=== PATIENT | male | born 1970 | race Caucasian/White ===

== ENCOUNTER 2023-03-01 13:24 | Inpatient (IN) | payer OTHER, SELFPAY ==
--- NOTE | ~2023-03-01 | XR_ITS ---
EXAMINATION: XR HAND, RIGHT CLINICAL INFORMATION: Dog bite COMPARISON: None available. TECHNIQUE: PA, lateral, and oblique views of the right hand. FINDINGS: No acute fracture or dislocation. Question evidence of old trauma to the base of the metacarpal bones or PRISON joint on the lateral view. Mild arthritis at the IP and first MCP joint of the thumb. Soft tissue swelling over the metacarpal region. No abnormal air collection or soft tissue foreign body. XR/XR hand RT min 3V IMPRESSION: No acute fracture or soft tissue foreign body. Diffuse soft tissue swelling.
--- NOTE | 2023-03-01 14:29 | ED_ITS ---
HPI - Extremity Injury (Upper) General Chief Complaint: Wound/Laceration <JUAN DAVID Leggett - Last Filed: 03/01/23 14:38> Stated Complaint: Dr called ahead for IV antibioticsw <JUAN DAVID Leggett - Last Filed: 03/01/23 14:38> Time Seen by Provider: 03/01/23 14:55 <JUAN DAVID Leggett - Last Filed: 03/01/23 14:38> Source: patient and family <Brian Hearn MD - Last Filed: 03/01/23 16:19> Mode of arrival: ambulatory <Brian Hearn MD - Last Filed: 03/01/23 16:19> Limitations: no limitations <Brian Hearn MD - Last Filed: 03/01/23 16:19> History of Present Illness HPI narrative: patient was bitten by his dog 5 days ago now with increased swelling and erythema <Brian Hearn MD - Last Filed: 03/01/23 16:19> MD complaint: injury to: right and hand <Brian Hearn MD - Last Filed: 03/01/23 16:19> Onset (ago): day(s) <Brian Hearn MD - Last Filed: 03/01/23 16:19> Severity: moderate <Brian Hearn MD - Last Filed: 03/01/23 16:19> Related Data Home Medications: Home Medications Medication Instructions Recorded Confirmed ascorbic acid (vitamin C) 500 mg 500 mg PO DAILY 03/01/23 03/01/23 tablet (Vitamin C) multivitamin 1 tab PO DAILY 03/01/23 03/01/23 <JUAN DAVID Leggett - Last Filed: 03/01/23 14:38> Allergies/Adverse Reactions: Allergies Allergy/AdvReac Type Severity Reaction Status Date / Time No Known Allergies Allergy Verified 03/01/23 14:29 <JUAN DAVID Leggett - Last Filed: 03/01/23 14:38> Review of Systems Review of Systems: Yes all other systems are reviewed and are negative < Brian Hearn MD - Last Filed: 03/01/23 16:19> Musculoskeletal: Comments: hand swelling and redness <Brina Hearn MD - Last Filed: 03/01/23 16:19> Neurologic: Denies Sensory deficit (Neuro) <Brian Hearn MD - Last Filed: 03/01/23 16:19> Physical Exam Vital Signs: Vital Signs: Last Vital Signs Temp 98.3 F 03/01/23 14:31 Pulse 85 03/01/23 14:31 Resp 16 03/01/23 14:31 BP 144/82 H 03/01/23 14:31 Pulse Ox 98 03/01/23 14:31 O2 Del Method Room Air 03/01/23 14:31 BMI result Body Mass Index 30.5 <JUAN DAVID Leggett - Last Filed: 03/01/23 14:38> Vital Signs: Last Vital Signs Temp 98.3 F 03/01/23 14:31 Pulse 85 03/01/23 14:31 Resp 16 03/01/23 14:31 BP 144/82 H 03/01/23 14:31 Pulse Ox 98 03/01/23 14:31 O2 Del Method Room Air 03/01/23 14:31 BMI result Body Mass Index 30.5 <Brian Hearn MD - Last Filed: 03/01/23 16:19> Const: General: healthy appearing <Brian Hearn MD - Last Filed: 02/18 12/13 16:19> Nutritional Appearance: average body habitus <Brian Hearn MD - Last Filed: 03/01/23 16:19> Orientation/consciousness: oriented to person and patient oriented x3 <Brian Hearn MD - Last Filed: 03/01/23 16:19> Limitations: no limitations <Brian Hearn MD - Last Filed: 03/01/23 16:19> HEENT: Head: Yes normal to inspection <Brian Hearn MD - Last Filed: 03/01/23 16:19> Ears: external ears normal <Brian Hearn MD - Last Filed: 03/01/23 16:19> General nose exam: Normal external nose present <Brian Hearn MD - Last Filed: 03/01/23 16:19> Mouth: Normal oral and palatal mucosa present and oropharynx normal <Brian Hearn MD - Last Filed: 03/01/23 16:19> Throat: Yes posterior oropharynx normal <Brian Hearn MD - Last Filed: 03/01/23 16:19> Eyes: General: appearance normal, both eyes and all related structures <Brian Hearn MD - Last Filed: 03/01/23 16:19> Neck: Other: supple <Brian Hearn MD - Last Filed: 03/01/23 16:19> Neck: Yes normal visual inspection <Brian Hearn MD - Last Filed: 03/01/23 16:19> Chest: Chest palpation & inspection: normal inspection of the chest <Brian Hearn MD - Last Filed: 03/01/23 16:19> Resp: Auscultation: clear to auscultation bilaterally <Brian Hearn MD - Last Filed: 03/01/23 16:19> Cardio: Jugular venous distension: no JVD <Brian Hearn MD - Last Filed: 03/01/23 16:19> Rate: regular rate <Brian Hearn MD - Last Filed: 03/01/23 16:19> Rhythm: regular rhythm <Brian Hearn MD - Last Filed: 03/01/23 16:19> Heart sounds: S1 normal heart sound present and S2 normal heart sound present <Brian Hearn MD - Last Filed: 03/01/23 16:19> GI: Inspection: Yes normal to inspection <Brian Hearn MD - Last Filed: 03/01/23 16:19> Palpation (GI): Soft to palpation, nontender and No hepatosplenomegaly present <Brian Hearn MD - Last Filed: 03/01/23 16:19> Auscultation: normal bowel sounds <Brian Hearn MD - Last Filed: 03/01/23 16:19> : General: Yes no CVA tenderness <Brian Hearn MD - Last Filed: 03/01/23 16:19> Back/Spine/Pelvis: Back: no CVA tenderness <Brian Hearn MD - Last Filed: 03/01/23 16:19> Skin: Other: as per hand exam <Brian Hearn MD - Last Filed: 03/01/23 16:19> Neuro: General: oriented to person and patient oriented x3 <Brian Hearn MD - Last Filed: 03/01/23 16:19> Cranial nerves: Yes CN's II-XII intact bilaterally <Brian Hearn MD - Last Filed: 03/01/23 16:19> Motor exam (neuro): 5/5 motor strength present throughout <Brian Hearn MD - Last Filed: 03/01/23 16:19> Sensory Exam: No Sensory deficit (Neuro) <Brian Hearn MD - Last Filed: 03/01/23 16:19> Extrem: Other: swollen with erythema and pus coming from dorsum of right 2nd digit <Brian Hearn MD - Last Filed: 03/01/23 16:19> Psych: Appearance: grossly normal <Brian Hearn MD - Last Filed: 03/01/23 16:19> Course Course Course Narrative: RME: 53yo M w/no sig PMHx c/o dog bite to right hand 5 days ago with worsening erythema, swelling, and pus drainage noted today. Sent in from urgent care, received Tdap [employer]. Dog UTD on vaccinations +puncture wounds to R hand worse @ 2nd digit MCP w/expressible drainage. +hand erythema/warmth. NV intact EKG, Labs, blood lactic/blood cultures, XR, IV Unasyn ordered Full HPI, ROS and PE to be performed by primary ED provider. <JUAN DAVID Leggett - Last Filed: 03/01/23 14:38> Reevaluation(s) Reevaluation #1: Patient evaluated by ortho will admit to hospitalist for IV abx <Brian Hearn MD - Last Filed: 03/01/23 16:19> Time: 16:13 <Brian Hearn MD - Last Filed: 03/01/23 16:19> Medical Decision Making Differential Diagnosis Differential Diagnoses: The differential diagnosis associated with the presentation includes (cellulitis, abscess, tenosynovitis) <Brian Hearn MD - Last Filed: 03/01/23 16:19> Admission/Observation Consideration of admission/observation: Escalation of care including admission/observation considered (upon evaluation the patient with red swollen hand needed admission) <Brian Hearn MD - Last Filed: 03/01/23 16:19> Consult Healthcare Provider Management of the patient was discussed with: Hospitalist and Global Regulatory Affairs Manager (ortho) <Brian Hearn MD - Last Filed: 03/01/23 16:19> Lab Data MDM Lab Attestation statement: I reviewed the patient's lab results. (noted WBC elevation) <Brian Hearn MD - Last Filed: 03/01/23 16:19> Result Diagrams: 03/01/23 15:04 03/01/23 15:04 <JUAN DAVID Leggett - Last Filed: 03/01/23 14:38> Labs: Lab Results 03/01/23 03/01/23 03/01/23 Range/Units 15:04 15:04 15:04 WBC 17.1 H (4.8-10.8) X10*3/uL RBC 5.25 (4.60-5.80) X10*6/uL Hgb 15.1 (14.0-18.0) g/dl Hct 45.2 (42.0-52.0) % MCV 86.1 (80.0-98.0) fL MCH 28.8 (27.0-33.0) pg MCHC 33.4 (31.0-36.0) g/dl RDW 13.3 (11.0-16.0) % Plt Count 315 (160-400) X10*3/uL MPV 9.6 (9.4-12.4) fL Immature Gran % (Auto) 0.5 H (0.0-0.4) % Neut % (Auto) 69.4 (45-73) % Lymph % (Auto) 20.3 (20-40) % Weston % (Auto) 8.3 (2-11) % Eos % (Auto) 1.3 (0-4) % Baso % (Auto) 0.2 (0-2) % Lymph # (Auto) 3.5 (1.2-4.9) X10*3/uL Weston # (Auto) 1.4 H (0.1-1.2) X10*3/uL Eos # (Auto) 0.2 (0.0-0.4) X10*3/uL Baso # (Auto) 0.0 (0.0-0.2) X10*3/uL Abs Immat Gran (auto) 0.09 H (0.00-0.03) X10*3/uL Absolute Neuts (auto) 11.9 H (2.0-8.3) x10*3/uL Absolute Nucleated RBC 0.000 (0.0-0.012) X10*3/uL Nucleated RBC % (auto) 0.0 (0.0-0.2) /100WBC PT 10.5 (10.0-13.1) SEC INR 0.9 (0.9-1.1) Sodium 138 (135-145) mmol/L Potassium 4.2 (3.3-5.1) mmol/L Chloride 106 (96-108) mmol/L Carbon Dioxide 23 (22-29) mmol/L Anion Gap 13 (12-20) BUN 9 (9-16) mg/dL Creatinine 0.74 (0.5-1.4) mg/dL Estim Creat Clear Calc 139.3 Estimated GFR > 60 Random Glucose 86 (60-115) mg/dL Lactic Acid (0.5-2.0) mmol/L Calcium 8.8 (8.4-10.2) mg/dL Total Bilirubin 0.9 (0.0-1.0) mg/dL Direct Bilirubin 0.2 (0.0-0.5) mg/dL AST 24 (5-37) U/L ALT 37 (0-40) U/L Alkaline Phosphatase 73 (39-117) U/L Total Protein 7.5 (6.5-8.0) g/dL Albumin 4.3 (3.5-5.0) g/dL 03/01/23 Range/Units 15:04 WBC (4.8-10.8) X10*3/uL RBC (4.60-5.80) X10*6/uL Hgb (14.0-18.0) g/dl Hct (42.0-52.0) % MCV (80.0-98.0) fL MCH (27.0-33.0) pg MCHC (31.0-36.0) g/dl RDW (11.0-16.0) % Plt Count (160-400) X10*3/uL MPV (9.4-12.4) fL Immature Gran % (Auto) (0.0-0.4) % Neut % (Auto) (45-73) % Lymph % (Auto) (20-40) % Weston % (Auto) (2-11) % Eos % (Auto) (0-4) % Baso % (Auto) (0-2) % Lymph # (Auto) (1.2-4.9) X10*3/uL Weston # (Auto) (0.1-1.2) X10*3/uL Eos # (Auto) (0.0-0.4) X10*3/uL Baso # (Auto) (0.0-0.2) X10*3/uL Abs Immat Gran (auto) (0.00-0.03) X10*3/uL Absolute Neuts (auto) (2.0-8.3) x10*3/uL Absolute Nucleated RBC (0.0-0.012) X10*3/uL Nucleated RBC % (auto) (0.0-0.2) /100WBC PT (10.0-13.1) SEC INR (0.9-1.1) Sodium (135-145) mmol/L Potassium (3.3-5.1) mmol/L Chloride (96-108) mmol/L Carbon Dioxide (22-29) mmol/L Anion Gap (12-20) BUN (9-16) mg/dL Creatinine (0.5-1.4) mg/dL Estim Creat Clear Calc Estimated GFR Random Glucose (60-115) mg/dL Lactic Acid 1.1 (0.5-2.0) mmol/L Calcium (8.4-10.2) mg/dL Total Bilirubin (0.0-1.0) mg/dL Direct Bilirubin (0.0-0.5) mg/dL AST (5-37) U/L ALT (0-40) U/L Alkaline Phosphatase (39-117) U/L Total Protein (6.5-8.0) g/dL Albumin (3.5-5.0) g/dL <JUAN DAVID Leggett - Last Filed: 03/01/23 14:38> Lab Results 03/01/23 03/01/23 03/01/23 Range/Units 15:04 15:04 15:04 WBC 17.1 H (4.8-10.8) X10*3/uL RBC 5.25 (4.60-5.80) X10*6/uL Hgb 15.1 (14.0-18.0) g/dl Hct 45.2 (42.0-52.0) % MCV 86.1 (80.0-98.0) fL MCH 28.8 (27.0-33.0) pg MCHC 33.4 (31.0-36.0) g/dl RDW 13.3 (11.0-16.0) % Plt Count 315 (160-400) X10*3/uL MPV 9.6 (9.4-12.4) fL Immature Gran % (Auto) 0.5 H (0.0-0.4) % Neut % (Auto) 69.4 (45-73) % Lymph % (Auto) 20.3 (20-40) % Weston % (Auto) 8.3 (2-11) % Eos % (Auto) 1.3 (0-4) % Baso % (Auto) 0.2 (0-2) % Lymph # (Auto) 3.5 (1.2-4.9) X10*3/uL Weston # (Auto) 1.4 H (0.1-1.2) X10*3/uL Eos # (Auto) 0.2 (0.0-0.4) X10*3/uL Baso # (Auto) 0.0 (0.0-0.2) X10*3/uL Abs Immat Gran (auto) 0.09 H (0.00-0.03) X10*3/uL Absolute Neuts (auto) 11.9 H (2.0-8.3) x10*3/uL Absolute Nucleated RBC 0.000 (0.0-0.012) X10*3/uL Nucleated RBC % (auto) 0.0 (0.0-0.2) /100WBC PT 10.5 (10.0-13.1) SEC INR 0.9 (0.9-1.1) Sodium 138 (135-145) mmol/L Potassium 4.2 (3.3-5.1) mmol/L Chloride 106 (96-108) mmol/L Carbon Dioxide 23 (22-29) mmol/L Anion Gap 13 (12-20) BUN 9 (9-16) mg/dL Creatinine 0.74 (0.5-1.4) mg/dL Estim Creat Clear Calc 139.3 Estimated GFR > 60 Random Glucose 86 (60-115) mg/dL Lactic Acid (0.5-2.0) mmol/L Calcium 8.8 (8.4-10.2) mg/dL Total Bilirubin 0.9 (0.0-1.0) mg/dL Direct Bilirubin 0.2 (0.0-0.5) mg/dL AST 24 (5-37) U/L ALT 37 (0-40) U/L Alkaline Phosphatase 73 (39-117) U/L Total Protein 7.5 (6.5-8.0) g/dL Albumin 4.3 (3.5-5.0) g/dL 03/01/23 Range/Units 15:04 WBC (4.8-10.8) X10*3/uL RBC (4.60-5.80) X10*6/uL Hgb (14.0-18.0) g/dl Hct (42.0-52.0) % MCV (80.0-98.0) fL MCH (27.0-33.0) pg MCHC (31.0-36.0) g/dl RDW (11.0-16.0) % Plt Count (160-400) X10*3/uL MPV (9.4-12.4) fL Immature Gran % (Auto) (0.0-0.4) % Neut % (Auto) (45-73) % Lymph % (Auto) (20-40) % Weston % (Auto) (2-11) % Eos % (Auto) (0-4) % Baso % (Auto) (0-2) % Lymph # (Auto) (1.2-4.9) X10*3/uL Weston # (Auto) (0.1-1.2) X10*3/uL Eos # (Auto) (0.0-0.4) X10*3/uL Baso # (Auto) (0.0-0.2) X10*3/uL Abs Immat Gran (auto) (0.00-0.03) X10*3/uL Absolute Neuts (auto) (2.0-8.3) x10*3/uL Absolute Nucleated RBC (0.0-0.012) X10*3/uL Nucleated RBC % (auto) (0.0-0.2) /100WBC PT (10.0-13.1) SEC INR (0.9-1.1) Sodium (135-145) mmol/L Potassium (3.3-5.1) mmol/L Chloride (96-108) mmol/L Carbon Dioxide (22-29) mmol/L Anion Gap (12-20) BUN (9-16) mg/dL Creatinine (0.5-1.4) mg/dL Estim Creat Clear Calc Estimated GFR Random Glucose (60-115) mg/dL Lactic Acid 1.1 (0.5-2.0) mmol/L Calcium (8.4-10.2) mg/dL Total Bilirubin (0.0-1.0) mg/dL Direct Bilirubin (0.0-0.5) mg/dL AST (5-37) U/L ALT (0-40) U/L Alkaline Phosphatase (39-117) U/L Total Protein (6.5-8.0) g/dL Albumin (3.5-5.0) g/dL <Brian Hearn MD - Last Filed: 03/01/23 16:19> Independent Interpretation I performed an independent interpretation of an: EKG (sinus [address] or twave changes) and Plain X-Ray (hand: no fracture or air) <Brian Hearn MD - Last Filed: 03/01/23 16:19> Independent Historian Clinical information obtained from an independent historian. History obtained from or confirmed by: Spouse <Brian Hearn MD - Last Filed: 03/01/23 16:19> Tests considered The following testing was considered but not selected: CT of hand considered <Brian Hearn MD - Last Filed: 03/01/23 16:19> Discharge Plan Discharge Clinical Impression: Cellulitis, Infected hand <JUAN DAVID Leggett - Last Filed: 03/01/23 14:38> Patient Disposition: Admitted As Inpatient <JUAN DAVID Leggett - Last Filed: 03/01/23 14:38> Prescriptions: No Action multivitamin Tablet 1 tab PO DAILY ascorbic acid (vitamin C) [Vitamin C] 500 mg Tablet 500 mg PO DAILY <JUAN DAVID Leggett - Last Filed: 03/01/23 14:38>
[2023-03-01 14:31] VITALS: BP 144/82; PULSE 85; RESP 16; TEMP 36.8; O2SAT 98; BMI 30.5
--- NOTE | 2023-03-01 14:33 | ECG_ITS ---
Test Reason : CLEARANCE Blood Pressure : / mmHG Vent. Rate : 075 BPM Atrial Rate : 075 BPM P-R Int : 138 ms QRS Dur : 092 ms QT Int : 366 ms P-R-T Axes : 038 033 030 degrees QTc Int : 408 ms Normal sinus rhythm Normal ECG No previous ECGs available Referred By: Mery Hutchins Electronically Signed By:VARGAS WOOD
--- NOTE | 2023-03-01 15:06 | ED_ITS ---
HPI - Wound/Laceration General Chief Complaint: Wound/Laceration Stated Complaint: called ahead for IV antibioticsw Time Seen by Provider: 03/01/23 14:55 Source: patient and family Mode of arrival: ambulatory Limitations: no limitations History of Present Illness HPI narrative: Patient was bitten by dog 5 days ago he is up to date with tetanous, and the dog is vaccinated. No history of MRSA or VRE, now with red hot swollen hand. Onset (ago): day(s) Location: other (left hand) Related Data Home Medications Medication Instructions Recorded Confirmed ascorbic acid (vitamin C) 500 mg 500 mg PO DAILY 03/01/23 03/09/23 tablet (Vitamin C) multivitamin 1 tab PO DAILY 03/01/23 03/09/23 Allergies Allergy/AdvReac Type Severity Reaction Status Date / Time No Known Allergies Allergy Verified 03/20/23 13:11 Review of Systems Review of Systems: Yes all other systems are reviewed and are negative Musculoskeletal: Comments: swollen red hot hand Neurologic: Denies Sensory deficit (Neuro) [facility] Past Medical History Surgical History History of splenectomy Social History Social History Household Members: Family Housing: House Do you presently have visiting nurse or other home services: No Patient Tobacco Use Status: Current everyday Tobacco user Tobacco use type: Smokeless Tobacco e-Cigarette/Vaping Use: Currently Using service: No Current occupational status: unemployed Physical Exam Vital Signs: Vital Signs: Last Vital Signs Temp 98.2 F 03/04/23 08:28 Pulse 89 03/04/23 08:28 Resp 20 03/04/23 08:28 BP 138/60 03/04/23 08:28 Pulse Ox 96 03/04/23 04:00 O2 Del Method Room Air 03/04/23 08:28 BMI result Body Mass Index 30.5 Const: General: healthy appearing Nutritional Appearance: average body habitus Orientation/consciousness: oriented to person and patient oriented x3 Limitations: no limitations HEENT: Head: Yes normal to inspection Ears: external ears normal General nose exam: Normal external nose present Mouth: Normal oral and palatal mucosa present and oropharynx normal Throat: Yes posterior oropharynx normal Eyes: General: appearance normal, both eyes and all related structures Neck: Other: supple Neck: Yes normal visual inspection Chest: Chest palpation & inspection: normal inspection of the chest Resp: Auscultation: clear to auscultation bilaterally Cardio: Jugular venous distension: no JVD Rate: regular rate Rhythm: regular rhythm Heart sounds: S1 normal heart sound present and S2 normal heart sound present GI: Inspection: Yes normal to inspection Palpation (GI): Soft to palpation, nontender and No hepatosplenomegaly present Auscultation: normal bowel sounds : General: Yes no CVA tenderness Back/Spine/Pelvis: Back: no CVA tenderness Skin: Other: red swollen hand with pus coming from dorsum of finger Neuro: General: oriented to person and patient oriented x3 Cranial nerves: Yes CN's II-XII intact bilaterally Motor exam (neuro): 5/5 motor strength present throughout Sensory Exam: No Sensory deficit (Neuro) Extrem: Other: as above Psych: Appearance: grossly normal Medications Administered Discontinued Medications Generic Name Dose Route Start Last Admin Trade Name Freq PRN Reason Stop Dose Admin Acetaminophen 650 mg 03/01/23 16:08 03/03/23 11:27 Acetaminophen 325 Mg Tablet PO 650 mg Q6H PRN Administration Pain, Mild (Pain Scale 1-3) Amoxicillin/Clavulanate Potassium 875 mg 03/04/23 10:00 03/04/23 10:15 Amoxicillin/Potassium Clav 875 Mg Tablet PO 875 mg Q12H YVES Administration Ascorbic Acid 500 mg 03/02/23 09:00 03/04/23 07:25 Ascorbic Acid 500 Mg Tablet PO 500 mg DAILY YVES Administration Enoxaparin Sodium 40 mg 03/01/23 16:15 03/03/23 15:21 Enoxaparin Sodium 40 Mg/0.4 Ml Syringe SUBCUT 40 mg Q24H YVES Administration Ampicillin Sodium/Sulbactam 100 mls @ 200 mls/hr 03/01/23 14:34 03/01/23 17:45 Sodium 3 gm/ Sodium Chloride IV 03/01/23 15:03 Infused ONCE ONE Infusion Ampicillin Sodium/Sulbactam 100 mls @ 200 mls/hr 03/01/23 20:30 03/04/23 08:08 Sodium 3 gm/ Sodium Chloride IV Infused Q6H YVES Infusion Cefazolin Sodium/Dextrose 2 gm in 50 mls @ 100 mls/hr 03/02/23 10:58 03/02/23 10:15 Ancef IV 03/02/23 11:27 Not Given PREOP ONE Lactated Ringer's 1,000 mls @ 50 mls/hr 03/02/23 09:15 03/02/23 10:16 Lr IVCONT Not Given .Q20H [facility] Cefazolin Sodium/Dextrose 2 gm in 50 mls @ 100 mls/hr 03/02/23 15:00 03/02/23 15:54 Ancef IV Infused POSTOP [facility] Infusion Lidocaine HCl 10 ml 03/01/23 16:17 03/01/23 17:42 Lidocaine Hcl 1 % 20 Ml Vial SUBCUT 03/01/23 16:18 Not Given ONCE ONE Morphine Sulfate 4 mg 03/02/23 12:50 03/03/23 21:00 Morphine Sulfate 4 Mg/Ml Cartridge IVPUSH 4 mg Q4H PRN Administration severe pain Protocol Multivitamins/Vitamin C 1 tab 03/02/23 09:00 03/04/23 07:25 Multivitamin Tablet PO 1 tab DAILY [facility] Administration Nicotine 21 mg 03/01/23 16:55 03/01/23 17:46 Nicotine 21 Mg Patch.[id number] TRANSDERMA 03/01/23 16:56 21 mg ONCE ONE Administration Oxycodone HCl 5 mg 03/01/23 16:09 03/03/23 11:27 Oxycodone Hcl Immed Release 5 Mg Tablet PO 5 mg Q4H PRN Administration Pain, Severe (Pain Scale 7-10) Sodium Chloride 3 ml 03/02/23 00:00 03/04/23 07:26 0.9 % Sodium Chloride Flush 3 Ml Syringe IVFLUSH 3 ml QSHIFT [facility] Administration Medical Decision Making Lab Data 03/02/23 05:59 03/01/23 15:04 Labs: Lab Results 03/01/23 03/01/23 03/01/23 Range/Units 15:04 15:04 15:04 WBC 17.1 H (4.8-10.8) X10*3/uL RBC 5.25 (4.60-5.80) X10*6/uL Hgb 15.1 (14.0-18.0) g/dl Hct 45.2 (42.0-52.0) % MCV 86.1 (80.0-98.0) fL MCH 28.8 (27.0-33.0) pg MCHC 33.4 (31.0-36.0) g/dl RDW 13.3 (11.0-16.0) % Plt Count 315 (160-400) X10*3/uL MPV 9.6 (9.4-12.4) fL Immature Gran % (Auto) 0.5 H (0.0-0.4) % Neut % (Auto) 69.4 (45-73) % Lymph % (Auto) 20.3 (20-40) % Quay % (Auto) 8.3 (2-11) % Eos % (Auto) 1.3 (0-4) % Baso % (Auto) 0.2 (0-2) % Lymph # (Auto) 3.5 (1.2-4.9) X10*3/uL Quay # (Auto) 1.4 H (0.1-1.2) X10*3/uL Eos # (Auto) 0.2 (0.0-0.4) X10*3/uL Baso # (Auto) 0.0 (0.0-0.2) X10*3/uL Abs Immat Gran (auto) 0.09 H (0.00-0.03) X10*3/uL Absolute Neuts (auto) 11.9 H (2.0-8.3) x10*3/uL Absolute Nucleated RBC 0.000 (0.0-0.012) X10*3/uL Nucleated RBC % (auto) 0.0 (0.0-0.2) /100WBC PT 10.5 (10.0-13.1) SEC INR 0.9 (0.9-1.1) Sodium 138 (135-145) mmol/L Potassium 4.2 (3.3-5.1) mmol/L Chloride 106 (96-108) mmol/L Carbon Dioxide 23 (22-29) mmol/L Anion Gap 13 (12-20) BUN 9 (9-16) mg/dL Creatinine 0.74 (0.5-1.4) mg/dL Estim Creat Clear Calc 139.3 Estimated GFR > 60 Random Glucose 86 (60-115) mg/dL Lactic Acid (0.5-2.0) mmol/L Calcium 8.8 (8.4-10.2) mg/dL Total Bilirubin 0.9 (0.0-1.0) mg/dL Direct Bilirubin 0.2 (0.0-0.5) mg/dL AST 24 (5-37) U/L ALT 37 (0-40) U/L Alkaline Phosphatase 73 (39-117) U/L Total Protein 7.5 (6.5-8.0) g/dL Albumin 4.3 (3.5-5.0) g/dL 03/01/23 Range/Units 15:04 WBC (4.8-10.8) X10*3/uL RBC (4.60-5.80) X10*6/uL Hgb (14.0-18.0) g/dl Hct (42.0-52.0) % MCV (80.0-98.0) fL MCH (27.0-33.0) pg MCHC (31.0-36.0) g/dl RDW (11.0-16.0) % Plt Count (160-400) X10*3/uL MPV (9.4-12.4) fL Immature Gran % (Auto) (0.0-0.4) % Neut % (Auto) (45-73) % Lymph % (Auto) (20-40) % Quay % (Auto) (2-11) % Eos % (Auto) (0-4) % Baso % (Auto) (0-2) % Lymph # (Auto) (1.2-4.9) X10*3/uL Quay # (Auto) (0.1-1.2) X10*3/uL Eos # (Auto) (0.0-0.4) X10*3/uL Baso # (Auto) (0.0-0.2) X10*3/uL Abs Immat Gran (auto) (0.00-0.03) X10*3/uL Absolute Neuts (auto) (2.0-8.3) x10*3/uL Absolute Nucleated RBC (0.0-0.012) X10*3/uL Nucleated RBC % (auto) (0.0-0.2) /100WBC PT (10.0-13.1) SEC INR (0.9-1.1) Sodium (135-145) mmol/L Potassium (3.3-5.1) mmol/L Chloride (96-108) mmol/L Carbon Dioxide (22-29) mmol/L Anion Gap (12-20) BUN (9-16) mg/dL Creatinine (0.5-1.4) mg/dL Estim Creat Clear Calc Estimated GFR Random Glucose (60-115) mg/dL Lactic Acid 1.1 (0.5-2.0) mmol/L Calcium (8.4-10.2) mg/dL Total Bilirubin (0.0-1.0) mg/dL Direct Bilirubin (0.0-0.5) mg/dL AST (5-37) U/L ALT (0-40) U/L Alkaline Phosphatase (39-117) U/L Total Protein (6.5-8.0) g/dL Albumin (3.5-5.0) g/dL Discharge Plan Discharge Clinical Impression: Cellulitis, Infected hand Patient Disposition: Admitted As Inpatient Discharge Date/Time: 03/01/23 17:40
[2023-03-01 15:12] LABS: MANUAL DIFF FLAG NO
[2023-03-01 15:19] LABS: Basophils Percent Auto 0.2 % (0-2); Eosinophils Absolute Auto 0.2 X10*3/uL (0.0-0.4); Eosinophils Percent Auto 1.3 % (0-4); Hematocrit 45.2 % (42.0-52.0); Hemoglobin 15.1 g/dl (14.0-18.0); Imm Gran Abs Auto 0.09 X10*3/uL (0.00-0.03); Imm Gran Pct Auto 0.5 % (0.0-0.4); Lymphocytes Absolute Auto 3.5 X10*3/uL (1.2-4.9); Lymphocytes Percent Auto 20.3 % (20-40); Mean Corpuscular HGB Conc 33.4 g/dl (31.0-36.0); Mean Corpuscular Hemoglobin 28.8 pg (27.0-33.0); Mean Corpuscular Volume 86.1 fL (80.0-98.0); Mean Platelet Volume 9.6 fL (9.4-12.4); Monocytes Absolute Auto 1.4 X10*3/uL (0.1-1.2); Monocytes Percent Auto 8.3 % (2-11); Neutrophils Absolute Auto 11.9 x10*3/uL (2.0-8.3); Neutrophils Percent Auto 69.4 % (45-73); Platelet Count 315 X10*3/uL (160-400); Red Blood Count 5.25 X10*6/uL (4.60-5.80); Red Cell Distribution Width 13.3 % (11.0-16.0); White Blood Count 17.1 X10*3/uL (4.8-10.8)
--- NOTE | 2023-03-01 15:24 | PM.IMHP ---
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 Patient states he was home petting his other dog when the little one, a service dog for 11 years, became jealous and bit the pt's right hand multiple times, breaking the skin. Dog is up to date with rabies vaccine. Pt washed the hand but did not bandage it. 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 Last night hand started to turn red and become swollen and painful. This morning pain, swelling, redness increased and hand began draining fluid. Patient's then convinced him to visit in Urgent Care who then referred him to the ED for treatment with IV antibiotics. Patient denies fever, chills, nausea, vomiting, abdominal pain. No chest pain/pressure, palpitations. Denies shortness of breath. Of note, pt denies any medical diagnoses, but admits he has not seen a PCP in over 20 years. In the ED was afebrile but slightly hypertensive 144/82. Labs were significant for leukocytosis of 17.1, otherwise unremarkable. Electrolytes normal. Renal function WNL. Hepatic function WNL. X-ray of right and showed diffuse soft tissue swelling but no acute fracture or soft tissue foreign body. EKG demonstrated normal sinus rhythm evidence ST elevations or depressions. Pt was treated with Tdap and Unasyn. Pt will be admitted to the hospital for treatment of right hand cellulitis secondary to dog bite with IV antibiotics and specialist consult. Review of Systems Review of Systems: Right hand pain, swelling, erythema, clear drainage Denies fever, chills, nausea, vomiting, abdominal pain No shortness of breath Denies chest pain/pressure, palpitations Yes all other systems are reviewed and are negative [facility] Surgical History (Updated 03/01/23 @ 19:36 by Mery Lewis RN) History of splenectomy Social History Household Members: Family Housing: House Do you presently have visiting nurse or other home services: No Patient Tobacco Use Status: Current everyday Tobacco user Tobacco use type: Smokeless Tobacco e-Cigarette/Vaping Use: Currently Using Meds Allergies Allergy/AdvReac Type Severity Reaction Status Date / Time No Known Allergies Allergy Verified 03/01/23 14:29 Active Medications: Current Medications Pharmacy Consult (Consult Rx Perform Med Rec) 1 each MISCELLANE ONCE STA Stop: 03/01/23 14:34 Home Medications Medication Instructions Recorded Confirmed Last Taken Type ascorbic acid (vitamin C) 500 mg 500 mg PO DAILY 03/01/23 03/01/23 Unknown History tablet (Vitamin C) multivitamin 1 tab PO DAILY 03/01/23 03/01/23 Unknown History Physical Exam Vital Signs and Narrative: Vital Signs: Last Vital Signs Temp 98.3 F 03/01/23 14:31 Pulse 85 03/01/23 14:31 Resp 16 03/01/23 14:31 BP 144/82 H 03/01/23 14:31 Pulse Ox 98 03/01/23 14:31 O2 Del Method Room Air 03/01/23 14:31 BMI result Body Mass Index 30.5 Constitutional: Alert, in no acute distress. Mental Status: Oriented to person, place and time. Eyes: Pupils are equal, round, and reactive to light. Ear, Nose, and Throat: Oropharynx clear, mucous membranes moist. Ears and nose without deformities. Trachea midline. Respiratory: Clear to auscultation bilaterally. No wheezing, rales, or rhonchi. Cardiovascular: S1, S2 regular. No murmurs, rubs, or gallops. Gastrointestinal: Abdomen soft, non-tender, non-distended. Normal bowel sounds. Neurologic: Cranial nerves II-XII are grossly intact bilaterally. No focal neurological deficits. Moves all extremities spontaneously. Extremities: Area of swelling and erythema covering the dorsal aspect of the right hand, extending up the first digit. Multiple closed wounds on dorsal aspect of hand and first digit. Open laceration on MCP joint draining a small amount of serous sanguinous fluid. See pictures below. Psychiatric: Normal mood and affect. Results Labs 03/01/23 15:04 03/01/23 15:04 Labs: Laboratory Results - last 24 hr 03/01/23 15:04 MCV 86.1 MCH 28.8 MCHC 33.4 RDW 13.3 Plt Count 315 MPV 9.6 Immature Gran % (Auto) 0.5 H Neut % (Auto) 69.4 Lymph % (Auto) 20.3 [place] % (Auto) 8.3 Eos % (Auto) 1.3 Baso % (Auto) 0.2 Lymph # (Auto) 3.5 [place] # (Auto) 1.4 H Eos # (Auto) 0.2 Baso # (Auto) 0.0 Abs Immat Gran (auto) 0.09 H Absolute Neuts (auto) 11.9 H Absolute Nucleated RBC 0.000 Nucleated RBC % (auto) 0.0 Assessment and Plan (1) Cellulitis: Status: Acute (2) Dog bite of dorsum of hand: Status: Acute Plan Pt is a 53-year-old male with a 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 Pt will be admitted to the hospital for treatment of right hand cellulitis secondary to dog bite with IV antibiotics and specialist consult. Right hand cellulitis secondary to dog bite Patient with dog bite 5 days ago, rabies vaccinations up-to-date Erythema and painful swelling x2 days, serous-sanguinous drainage x1 day Unasyn 3g q6, started 03/01/2023 Analgesics for pain management Orthopedics consult Follow cultures Routine health maintenance Pt has not seen a PCP in 20+ years Pt has been encouraged to have yearly physicals Full Code Attending:?Dr. Tam DVT Prophylaxis: Lovenox Pt will require a hospitalization of at least two nights for treatment of?right hand cellulitis secondary to dog by with IV antibiotics and specialist consult. Time Spent With Patient Time: Total time managing care of this patient today ____ minutes. Quality Stroke Does the patient have a stroke diagnosis?: No VTE Prior VTE?: No VTE Risk Level:: Medical - moderate - high VTE Device Contraindication: Treatment Not Indicated VTE Drug Contraindication: N/A - Med Ordered
[2023-03-01 15:26] LABS: INTERNATIONAL NORM RATIO 0.9 (0.9-1.1); Prothrombin Time 10.5 SEC (10.0-13.1)
[2023-03-01 15:33] LABS: Lactic Acid 1.1 mmol/L (0.5-2.0)
[2023-03-01 15:37] LABS: Alanine Aminotransferase 37 U/L (0-40); Albumin Level 4.3 g/dL (3.5-5.0); Alkaline Phosphatase 73 U/L (39-117); Anion Gap 13 (12-20); Aspartate Amino Transferase 24 U/L (5-37); Bilirubin Direct 0.2 mg/dL (0.0-0.5); Bilirubin Total 0.9 mg/dL (0.0-1.0); Blood Urea Nitrogen 9 mg/dL (9-16); Calcium 8.8 mg/dL (8.4-10.2); Carbon Dioxide 23 mmol/L (22-29); Chloride 106 mmol/L (96-108); Creatinine Clr Calc Pharmacy 139.3; Estimated Glomerular Filt Rate > 60; Glucose Random 86 mg/dL (60-115); Potassium 4.2 mmol/L (3.3-5.1); Sodium 138 mmol/L (135-145); Total Protein 7.5 g/dL (6.5-8.0)
[2023-03-01] MEDS: Ampicillin Sodium/Sulbactam Na 3 GM in 0.9 % Sodium Chloride 100 ML IV ×2 (16:18→21:12)
--- NOTE | 2023-03-01 16:24 | PM.EVENT ---
Event Note Date of Service: 03/01/23 Event Note: Addendum to history and physical by the advanced practice provider, JUAN DAVID Valentine I interviewed and examined the patient. I discussed their presentation and management with the MAINOR. I reviewed the history and physical and agree with the documentation, with the following additions and corrections: 53yo non diabetic M, hx splenectomy, bit by his service dog 5d prior to presentation. Presenting with 1d of redness/swelling/pain, now draining fluid Dorsum of R hand erythematous + swollen, distally neurovascular intact admit to M/S, consult Ortho, give amp-sulbactam Time Spent With Patient Time: Total time managing care of this patient today ____ minutes.
[2023-03-01] MEDS: oxyCODONE HCl Immed Release 5 MG TABLET PO ×2 (16:28→21:11)
[2023-03-01] MEDS: Enoxaparin Sodium 40 MG/0.4 ML SYRINGE SUBCUT (16:28)
--- NOTE | 2023-03-01 16:50 | P.HPOP_ITS ---
History of Present Illness History of Present Illness Date of Service: 03/01/23 Chief complaint: Dog bite to right hand Narrative: Willem Moore is a 53 year old male who presented to the ED for right hand dog bite that he sustained 5 days ago. He was seen at an urgent care who directed h im to the ED for further evaluation. The dog is owned by the patient. He reports that it is a service dog and up to date on all vaccinations. He reports that this morning in the shower the punture wound over the index finger opened and began draining puss. He was seen in the ED and admitted to the medicine service for IV abx and orthopedics was consulted for further evaluation and treatment. Review of Systems Review of Systems: Yes all other systems are reviewed and are negative PMFSH Social History Social History Advance Directives: No Advance Directives Information Provided: Yes Meds Allergies Allergy/AdvReac Type Severity Reaction Status Date / Time No Known Allergies Allergy Verified 03/01/23 14:29 Active Medications: Current Medications Acetaminophen (Acetaminophen 325 Mg Tablet) 650 mg PO Q6H PRN PRN Reason: Pain, Mild (Pain Scale 1-3) Ascorbic Acid (Ascorbic Acid 500 Mg Tablet) 500 mg PO DAILY [facility] Docusate Sodium (Docusate Sodium 100 Mg Capsule) 100 mg PO DAILY PRN PRN Reason: Constipation Enoxaparin Sodium (Enoxaparin Sodium 40 Mg/0.4 Ml Syringe) 40 mg SUBCUT Q24H [facility] Last Admin: 03/01/23 16:28 Dose: 40 mg Ampicillin Sodium/Sulbactam (Sodium 3 gm/ Sodium Chloride) 100 mls @ 200 mls/hr IV Q6H [facility] Multivitamins/Vitamin C (Multivitamin Tablet) 1 tab PO DAILY [facility] Ondansetron HCl (Ondansetron Hcl 4 Mg/2 Ml Vial) 4 mg IVPUSH Q8H PRN PRN Reason: Nausea and Vomiting Oxycodone HCl (Oxycodone Hcl Immed Release 5 Mg Tablet) 5 mg PO Q4H PRN PRN Reason: Pain, Severe (Pain Scale 7-10) Last Admin: 03/01/23 16:28 Dose: 5 mg Sodium Chloride (0.9 % Sodium Chloride Flush 3 Ml Syringe) 3 ml IVFLUSH QSHIFT [facility] Home Medications Medication Instructions Recorded Confirmed Last Taken Type ascorbic acid (vitamin C) 500 mg 500 mg PO DAILY 03/01/23 03/01/23 Unknown History tablet (Vitamin C) multivitamin 1 tab PO DAILY 03/01/23 03/01/23 Unknown History Physical Exam Vital Signs: Vital Signs: Last Vital Signs Temp 98.3 F 03/01/23 14:31 Pulse 85 03/01/23 14:31 Resp 16 03/01/23 14:31 BP 144/82 H 03/01/23 14:31 Pulse Ox 98 03/01/23 14:31 O2 Del Method Room Air 03/01/23 14:31 BMI result Body Mass Index 30.5 Const: General: cooperative, healthy appearing and no acute distress Resp: Effort & Inspection: normal respiratory effort and able to speak in complete sentences Cardio: Rate: regular rate Peripheral pulses: Peripheral pulses 2+ throughout GI: Palpation (GI): Soft to palpation Skin: Lesions: no lesions Rashes: no rashes Extrem: Other: Right hand dorsal aspect is erythematous and edematous. Able to slightly flex fingers lacking about 4 cm from making a closed fist. Able to fully extend. No tenderness to palpation along the flexor tendons. Tenderness to dorsal aspect of the hand. Sensation intact. Capillary refill is brisk. Three puncture wounds are noted. See picture: Results Labs 03/01/23 15:04 03/01/23 15:04 Labs: Abnormal lab results 03/01/23 Range/Units 15:04 WBC 17.1 H (4.8-10.8) X10*3/uL Immature Gran % (Auto) 0.5 H (0.0-0.4) % [place] # (Auto) 1.4 H (0.1-1.2) X10*3/uL Abs Immat Gran (auto) 0.09 H (0.00-0.03) X10*3/uL Absolute Neuts (auto) 11.9 H (2.0-8.3) x10*3/uL H & H 03/01/23 Range/Units 15:04 Hgb 15.1 (14.0-18.0) g/dl Hct 45.2 (42.0-52.0) % Coagulation 03/01/23 Range/Units 15:04 INR 0.9 (0.9-1.1) All other labs normal. Assessment and Plan (1) Dog bite of dorsum of hand: Status: Acute (2) Cellulitis: Status: Acute (3) Infected hand: Status: Acute Plan I discussed the case with Dr. Andrade and explained the extent of the injury to the patient and options available which include surgical intervention. I explained the procedure in detail along with the length of recovery and rehab course. I explained the risk, benefits and alternatives. Risk including, but not limited to infection, blood clots, bleeding, and nerve/tissue damage to surrounding areas. I answered all their questions and with their understanding they have consented to move forward with irrigation and debridement of the right hand. The patient will be NPO after midnight with re-evaluation in the morning to determine if OR irrigation and debridement is still necessary. Continue IV abx Dressing changes as appropriate Pain management as appropriate NPO after midnight Time Spent With Patient Time: Total time managing care of this patient today ____ minutes. Quality Stroke Does the patient have a stroke diagnosis?: No VTE Prior VTE?: No VTE Risk Level:: Medical - moderate - high VTE Device Contraindication: Treatment Not Indicated VTE Drug Contraindication: N/A - Med Ordered Procedures Date of Service Date of Service: 03/01/23
[2023-03-01 17:24] VITALS: BP 170/90; PULSE 88; RESP 18; TEMP 36.9; O2SAT 97
[2023-03-01] MEDS: Nicotine 21 MG PATCH.TD24 TRANSDERMA (17:46)
--- NOTE | 2023-03-01 18:43 | PHA.MEDREC ---
Pharmacy Consult ? Medication Reconciliation Patient stated no meds only MVI and Vitamin C Pharmacy has completed the medication reconciliation.
[2023-03-01 19:31] VITALS: BP 195/91; PULSE 86; RESP 20; TEMP 37.3; O2SAT 98
[2023-03-01] MEDS: 0.9 % Sodium Chloride Flush 3 ML SYRINGE IVFLUSH (21:19)
[2023-03-02] VITALS (10 sets, daily range): BP systolic 123–176; BP diastolic 59–94; PULSE 66–81; RESP 15–20; TEMP 36.1–37.2; O2SAT 95–99; BMI 30.5
[2023-03-02] MEDS: Ampicillin Sodium/Sulbactam Na 3 GM in 0.9 % Sodium Chloride 100 ML IV ×3 (02:42→20:30)
[2023-03-02 06:26] LABS: Hematocrit 44.8 % (42.0-52.0); Hemoglobin 15.2 g/dl (14.0-18.0); Mean Corpuscular HGB Conc 33.9 g/dl (31.0-36.0); Mean Corpuscular Hemoglobin 29.1 pg (27.0-33.0); Mean Corpuscular Volume 85.8 fL (80.0-98.0); Mean Platelet Volume 9.7 fL (9.4-12.4); Platelet Count 312 X10*3/uL (160-400); Red Blood Count 5.22 X10*6/uL (4.60-5.80); Red Cell Distribution Width 13.3 % (11.0-16.0); White Blood Count 11.6 X10*3/uL (4.8-10.8)
[2023-03-02] MEDS: 0.9 % Sodium Chloride Flush 3 ML SYRINGE IVFLUSH ×3 (08:05→19:56)
--- NOTE | 2023-03-02 08:29 | P.CONAN_ITS ---
HPI - Anesthesia Eval Consult details Narrative: right hand celulitis PMFSH Active Problems Active Problems: All Active Problems (Updated 03/01/23 @ 16:32 by JUAN DAVID Alvarado) Cellulitis (Acute) Infected hand (Acute) Dog bite of dorsum of hand (Acute) Family History Family history of problems with anesthesia: No Surgical History Surgical History (Updated 03/01/23 @ 19:36 by Mery Lewis RN) History of splenectomy History of Problems with Anesthesia: No Social History Social History Household Members: Family Housing: House Do you presently have visiting nurse or other home services: No Patient Tobacco Use Status: Current everyday Tobacco user Tobacco use type: Smokeless Tobacco e-Cigarette/Vaping Use: Currently Using Meds Allergies Allergy/AdvReac Type Severity Reaction Status Date / Time No Known Allergies Allergy Verified 03/01/23 14:29 Active Medications: Current Medications Acetaminophen (Acetaminophen 325 Mg Tablet) 650 mg PO Q6H PRN PRN Reason: Pain, Mild (Pain Scale 1-3) Ascorbic Acid (Ascorbic Acid 500 Mg Tablet) 500 mg PO DAILY [facility] Docusate Sodium (Docusate Sodium 100 Mg Capsule) 100 mg PO DAILY PRN PRN Reason: Constipation Enoxaparin Sodium (Enoxaparin Sodium 40 Mg/0.4 Ml Syringe) 40 mg SUBCUT Q24H [facility] Last Admin: 03/01/23 16:28 Dose: 40 mg Ampicillin Sodium/Sulbactam (Sodium 3 gm/ Sodium Chloride) 100 mls @ 200 mls/hr IV Q6H [facility] Last Infusion: 03/02/23 03:19 Dose: Infused Cefazolin Sodium/Dextrose (Ancef) 2 gm in 50 mls @ 100 mls/hr IV PREOP ONE Stop: 03/02/23 11:27 Multivitamins/Vitamin C (Multivitamin Tablet) 1 tab PO DAILY [facility] Ondansetron HCl (Ondansetron Hcl 4 Mg/2 Ml Vial) 4 mg IVPUSH Q8H PRN PRN Reason: Nausea and Vomiting Oxycodone HCl (Oxycodone Hcl Immed Release 5 Mg Tablet) 5 mg PO Q4H PRN PRN Reason: Pain, Severe (Pain Scale 7-10) Last Admin: 03/01/23 21:11 Dose: 5 mg Sodium Chloride (0.9 % Sodium Chloride Flush 3 Ml Syringe) 3 ml IVFLUSH QSHIFT [facility] Last Admin: 03/02/23 08:05 Dose: 3 ml Home Medications Medication Instructions Recorded Confirmed Last Taken Type ascorbic acid (vitamin C) 500 mg 500 mg PO DAILY 03/01/23 03/01/23 Unknown History tablet (Vitamin C) multivitamin 1 tab PO DAILY 03/01/23 03/01/23 Unknown History Exam Exam Date and Time: March 02, 2023 0829 Height,Weight and Vital Signs: Height 6 ft Weight 102.058 kg Last Vital Signs Temp 97.0 F 03/02/23 08:18 Pulse 68 03/02/23 08:18 Resp 18 03/02/23 08:18 BP 176/91 H 03/02/23 08:18 Pulse Ox 97 03/02/23 08:18 O2 Del Method Room Air 03/02/23 08:18 Pertinent Lab Results Pertinent Lab Results: Laboratory Tests 03/01/23 03/01/23 03/01/23 15:04 15:04 15:04 WBC 17.1 H RBC 5.25 Hgb 15.1 Hct 45.2 MCV 86.1 MCH 28.8 MCHC 33.4 RDW 13.3 Plt Count 315 MPV 9.6 Immature Gran % (Auto) 0.5 H Neut % (Auto) 69.4 Lymph % (Auto) 20.3 [place] % (Auto) 8.3 Eos % (Auto) 1.3 Baso % (Auto) 0.2 Lymph # (Auto) 3.5 [place] # (Auto) 1.4 H Eos # (Auto) 0.2 Baso # (Auto) 0.0 Abs Immat Gran (auto) 0.09 H Absolute Neuts (auto) 11.9 H Absolute Nucleated RBC 0.000 Nucleated RBC % (auto) 0.0 PT 10.5 INR 0.9 Sodium 138 Potassium 4.2 Chloride 106 Carbon Dioxide 23 Anion Gap 13 BUN 9 Creatinine 0.74 Estim Creat Clear Calc 139.3 Estimated GFR > 60 Random Glucose 86 Lactic Acid Calcium 8.8 Total Bilirubin 0.9 Direct Bilirubin 0.2 AST 24 ALT 37 Alkaline Phosphatase 73 Total Protein 7.5 Albumin 4.3 03/01/23 03/02/23 15:04 05:59 WBC 11.6 H RBC 5.22 Hgb 15.2 Hct 44.8 MCV 85.8 MCH 29.1 MCHC 33.9 RDW 13.3 Plt Count 312 MPV 9.7 Immature Gran % (Auto) Neut % (Auto) Lymph % (Auto) [place] % (Auto) Eos % (Auto) Baso % (Auto) Lymph # (Auto) [place] # (Auto) Eos # (Auto) Baso # (Auto) Abs Immat Gran (auto) Absolute Neuts (auto) Absolute Nucleated RBC 0.000 Nucleated RBC % (auto) 0.0 PT INR Sodium Potassium Chloride Carbon Dioxide Anion Gap BUN Creatinine Estim Creat Clear Calc Estimated GFR Random Glucose Lactic Acid 1.1 Calcium Total Bilirubin Direct Bilirubin AST ALT Alkaline Phosphatase Total Protein Albumin Airway Mallampati Class: II TM Dist: >3cm Loose/Missing/Broken Teeth: Yes (loose lower incisers) Heart: RRR Lungs: CTA Assessment and Plan Assessment Anesthesia Assessment: Anesthesia Plan Discussed Final Anesthetic Review Family History of Problems with Anesthesia: No History of Problems with Anesthesia: No NPO: Yes ASA Class: I Final Preanesthetic Review: No Changes in Pt Med Stat, Meds/Allgs Chart Reviewed, Consent Obtained/Reviewed and Anes Risks/Benef Reviewed Patient Risk: Low Procedure Risk: Low Anesthetic Plan Anesthetic Plan: GA Disposition: Standard PACU
[2023-03-02] MEDS: oxyCODONE HCl Immed Release 5 MG TABLET PO ×2 (09:52→18:21)
[2023-03-02] MEDS: Acetaminophen 325 MG TABLET 650 MG PO ×2 (09:52→18:21)
--- NOTE | 2023-03-02 10:02 | PM.OP ---
Brief Operative Note Date of Service: 03/02/23 Pre-op diagnosis: Right hand infection Post-op diagnosis: same Procedure: 1) Irrigation and debridement right dorsal hand wound 2) Irrigation and debridement right 2nd web space Surgeon: Serjio Andrade MD Anesthesia: GLMA and local Was an Industrial Economics Professor used for this Procedure?: No Estimated blood loss (mL): 50 IV fluids (mL): 500 Pathology: other Condition: stable Disposition: PACU
--- NOTE | 2023-03-02 11:20 | P.PNIM_ITS ---
Subjective Subjective Date of Service: 03/02/23 Interval History: s/p I+D today pain controlled no fever/chills Review of Systems Review of Systems: Yes all other systems are reviewed and are negative Physical Exam Vital Signs: Vital Signs: Last Vital Signs Temp 97.8 F 03/02/23 11:12 Pulse 67 03/02/23 11:12 Resp 18 03/02/23 11:12 BP 158/94 H 03/02/23 11:12 Pulse Ox 98 03/02/23 11:12 O2 Del Method Room Air 03/02/23 11:12 BMI result Body Mass Index 30.5 Gen: in no acute distress HEENT: sclera anicteric, moist mucus membranes Neck: supple Lungs: clear to auscultation bilaterally Heart: regular rate and rhythm, no murmurs Abd: soft, non-tender, non-distended Ext: no edema, RUE in splint in anatomic position Skin: warm/well-perfused Neuro: alert and oriented x3, no focal findings Psych: appropriate affect Objective Data Active Medications Acetaminophen (Acetaminophen 325 Mg Tablet) 650 mg PO Q6H PRN PRN Reason: Pain, Mild (Pain Scale 1-3) Last Admin: 03/02/23 09:52 Dose: 650 mg Documented By: JOHNNY Ascorbic Acid (Ascorbic Acid 500 Mg Tablet) 500 mg PO DAILY [facility] Last Admin: 03/02/23 09:05 Dose: Not Given Documented By: ELLEN Non-Admin Reason: Off Unit: Surgery Docusate Sodium (Docusate Sodium 100 Mg Capsule) 100 mg PO DAILY PRN PRN Reason: Constipation Enoxaparin Sodium (Enoxaparin Sodium 40 Mg/0.4 Ml Syringe) 40 mg SUBCUT Q24H [facility] Last Admin: 03/01/23 16:28 Dose: 40 mg Documented By: MARIANA Ampicillin Sodium/Sulbactam (Sodium 3 gm/ Sodium Chloride) 100 mls @ 200 mls/hr IV Q6H [facility] Last Admin: 03/02/23 09:05 Dose: Not Given Documented By: ELLEN Non-Admin Reason: Off Unit: Surgery Cefazolin Sodium/Dextrose (Ancef) 2 gm in 50 mls @ 100 mls/hr IV PREOP ONE Stop: 03/02/23 11:27 Last Admin: 03/02/23 10:15 Dose: Not Given Documented By: ELLEN Non-Admin Reason: Pre Op Cefazolin Sodium/Dextrose (Ancef) 2 gm in 50 mls @ 100 mls/hr IV POSTOP [facility] Multivitamins/Vitamin C (Multivitamin Tablet) 1 tab PO DAILY [facility] Last Admin: 03/02/23 09:06 Dose: Not Given Documented By: ELLEN Non-Admin Reason: Off Unit: Surgery Ondansetron HCl (Ondansetron Hcl 4 Mg/2 Ml Vial) 4 mg IVPUSH Q8H PRN PRN Reason: Nausea and Vomiting Oxycodone HCl (Oxycodone Hcl Immed Release 5 Mg Tablet) 5 mg PO Q4H PRN PRN Reason: Pain, Severe (Pain Scale 7-10) Last Admin: 03/02/23 09:52 Dose: 5 mg Documented By: JOHNNY Sodium Chloride (0.9 % Sodium Chloride Flush 3 Ml Syringe) 3 ml IVFLUSH QSHIFT [facility] Last Admin: 03/02/23 08:05 Dose: 3 ml Documented By: ELLEN Labs 03/02/23 05:59 03/01/23 15:04 Labs: Laboratory Results - last 24 hr 03/01/23 03/01/23 03/01/23 15:04 15:04 15:04 MCV 86.1 MCH 28.8 MCHC 33.4 RDW 13.3 Plt Count 315 MPV 9.6 Immature Gran % (Auto) 0.5 H Neut % (Auto) 69.4 Lymph % (Auto) 20.3 [place] % (Auto) 8.3 Eos % (Auto) 1.3 Baso % (Auto) 0.2 Lymph # (Auto) 3.5 [place] # (Auto) 1.4 H Eos # (Auto) 0.2 Baso # (Auto) 0.0 Abs Immat Gran (auto) 0.09 H Absolute Neuts (auto) 11.9 H Absolute Nucleated RBC 0.000 Nucleated RBC % (auto) 0.0 PT 10.5 INR 0.9 Anion Gap 13 Estim Creat Clear Calc 139.3 Estimated GFR > 60 Random Glucose 86 Lactic Acid Calcium 8.8 Total Bilirubin 0.9 Direct Bilirubin 0.2 AST 24 ALT 37 Alkaline Phosphatase 73 Total Protein 7.5 Albumin 4.3 03/01/23 03/02/23 15:04 05:59 MCV 85.8 MCH 29.1 MCHC 33.9 RDW 13.3 Plt Count 312 MPV 9.7 Immature Gran % (Auto) Neut % (Auto) Lymph % (Auto) [place] % (Auto) Eos % (Auto) Baso % (Auto) Lymph # (Auto) [place] # (Auto) Eos # (Auto) Baso # (Auto) Abs Immat Gran (auto) Absolute Neuts (auto) Absolute Nucleated RBC 0.000 Nucleated RBC % (auto) 0.0 PT INR Anion Gap Estim Creat Clear Calc Estimated GFR Random Glucose Lactic Acid 1.1 Calcium Total Bilirubin Direct Bilirubin AST ALT Alkaline Phosphatase Total Protein Albumin Assessment and Plan (1) Infected hand: Status: Acute (2) Cellulitis: Status: Acute (3) Dog bite of dorsum of hand: Status: Acute Plan d#2 53yo M nondiabetic M with hx splenectomy admitted for cellulitis from infected dog bite - s/p OR today for 1) Irrigation and debridement right dorsal hand wound 2) Irrigation and debridement right 2nd web space - continue amp/sulbactam - WBCs improved - follow BCx # VTE ppx: LMWH # dispo: anticipate home eventually In my clinical judgment, the patient requires continued inpatient hospitalization for the following reasons: IV ABX, postop care Time Spent With Patient Time: Total time managing care of this patient today ___30_ minutes. Quality Stroke Does the patient have a stroke diagnosis?: No VTE Prior VTE?: No VTE Risk Level:: Medical - moderate - high VTE Device Contraindication: Treatment Not Indicated VTE Drug Contraindication: N/A - Med Ordered
--- NOTE | 2023-03-02 12:33 | MHC.CM.PN ---
PT REPORTS HE LIVES WITH HIS AND IS INDEPENDENT WITH CARE PT HAS NO DME AND NO SERVICES PT DECLINES TO COMPLETE A HCP HE IS NOT COVID [place] HE DOES NOT HAVE A PCP DCP: HOME NO SERVICES PT WILL DRIVE HIMSELF
[2023-03-02] MEDS: Morphine Sulfate 4 MG/ML CARTRIDGE IVPUSH ×2 (12:59→19:56)
[2023-03-02] MEDS: ceFAZolin Sodium/Dextrose,Iso 2 GM/50 ML PIGGYBACK IV (15:18)
[2023-03-02] MEDS: Enoxaparin Sodium 40 MG/0.4 ML SYRINGE SUBCUT (17:48)
[2023-03-03] MEDS: Ampicillin Sodium/Sulbactam Na 3 GM in 0.9 % Sodium Chloride 100 ML IV ×4 (02:20→20:22)
[2023-03-03 03:39] VITALS: BP 164/82; PULSE 82; RESP 16; TEMP 36.9; O2SAT 97
[2023-03-03] MEDS: 0.9 % Sodium Chloride Flush 3 ML SYRINGE IVFLUSH ×2 (08:01→15:21)
[2023-03-03] MEDS: Multivitamin TABLET 1 TAB PO (08:01)
[2023-03-03] MEDS: Ascorbic Acid 500 MG TABLET PO (08:02)
[2023-03-03 08:04] VITALS: BP 148/88; PULSE 82; RESP 18; TEMP 36.6; O2SAT 96
[2023-03-03] MEDS: Morphine Sulfate 4 MG/ML CARTRIDGE IVPUSH ×3 (08:37→21:00)
--- NOTE | 2023-03-03 09:29 | P.PNIM_ITS ---
Subjective Subjective Date of Service: 03/03/23 Interval History: pain controlled itchy under splint no fever/chills/nausea/vomiting Review of Systems Review of Systems: Yes all other systems are reviewed and are negative Physical Exam Vital Signs: Vital Signs: Last Vital Signs Temp 97.8 F 03/03/23 08:04 Pulse 82 03/03/23 08:04 Resp 18 03/03/23 08:04 BP 148/88 H 03/03/23 08:04 Pulse Ox 96 03/03/23 08:04 O2 Del Method Room Air 03/03/23 08:04 BMI result Body Mass Index 30.5 Gen: in no acute distress HEENT: sclera anicteric, moist mucus membranes Neck: supple Lungs: clear to auscultation bilaterally Heart: regular rate and rhythm, no murmurs Abd: soft, non-tender, non-distended Ext: no edema, RUE in splint in anatomic position Skin: warm/well-perfused Neuro: alert and oriented x3, no focal findings Psych: appropriate affect Objective Data Active Medications Acetaminophen (Acetaminophen 325 Mg Tablet) 650 mg PO Q6H PRN PRN Reason: Pain, Mild (Pain Scale 1-3) Last Admin: 03/02/23 18:21 Dose: 650 mg Documented By: ELLEN Ascorbic Acid (Ascorbic Acid 500 Mg Tablet) 500 mg PO DAILY [facility] Last Admin: 03/03/23 08:02 Dose: 500 mg Documented By: DANY Docusate Sodium (Docusate Sodium 100 Mg Capsule) 100 mg PO DAILY PRN PRN Reason: Constipation Enoxaparin Sodium (Enoxaparin Sodium 40 Mg/0.4 Ml Syringe) 40 mg SUBCUT Q24H [facility] Last Admin: 03/02/23 17:48 Dose: 40 mg Documented By: ELLEN Ampicillin Sodium/Sulbactam (Sodium 3 gm/ Sodium Chloride) 100 mls @ 200 mls/hr IV Q6H [facility] Last Infusion: 03/03/23 08:37 Dose: 0 mls/hr Documented By: DANY Cefazolin Sodium/Dextrose (Ancef) 2 gm in 50 mls @ 100 mls/hr IV POSTOP [facility] Last Infusion: 03/02/23 15:54 Dose: 0 mls/hr Documented By: ELLEN Morphine Sulfate (Morphine Sulfate 4 Mg/Ml Cartridge) 4 mg IVPUSH Q4H PRN; Protocol PRN Reason: severe pain Last Admin: 03/03/23 08:37 Dose: 4 mg Documented By: DANY Multivitamins/Vitamin C (Multivitamin Tablet) 1 tab PO DAILY [facility] Last Admin: 03/03/23 08:01 Dose: 1 tab Documented By: DANY Ondansetron HCl (Ondansetron Hcl 4 Mg/2 Ml Vial) 4 mg IVPUSH Q8H PRN PRN Reason: Nausea and Vomiting Oxycodone HCl (Oxycodone Hcl Immed Release 5 Mg Tablet) 5 mg PO Q4H PRN PRN Reason: Pain, Severe (Pain Scale 7-10) Last Admin: 03/02/23 18:21 Dose: 5 mg Documented By: ELLEN Sodium Chloride (0.9 % Sodium Chloride Flush 3 Ml Syringe) [facility] Last Admin: 03/03/23 08:01 Dose: 3 ml Documented By: DANY Labs 03/02/23 05:59 03/01/23 15:04 Microbiology Microbiology Results: Microbiology 03/01/23 15:09 Blood Culture - Preliminary Blood - Venous No growth after 24 hours. 03/01/23 15:04 Blood Culture - Preliminary Blood - Venous No growth after 24 hours. 03/02/23 Unknown Gram Stain - Final Hand Right Assessment and Plan (1) Infected hand: Status: Acute (2) Cellulitis: Status: Acute (3) Dog bite of dorsum of hand: Status: Acute Plan d#2=3 53yo M nondiabetic M with hx splenectomy admitted for cellulitis from infected dog bite - POD#1 I+D R dorsal hand wound + 2nd web space - follow blood + wound cultures - WBCs improved - amp/sulbactam d#2->3 # VTE ppx: LMWH # dispo: anticipate home in next 1-2d In my clinical judgment, the patient requires continued inpatient hospitalization for the following reasons: IV ABX, postop care Time Spent With Patient Time: Total time managing care of this patient today ___25_ minutes. Quality Stroke Does the patient have a stroke diagnosis?: No VTE Prior VTE?: No VTE Risk Level:: Medical - moderate - high VTE Device Contraindication: Treatment Not Indicated VTE Drug Contraindication: N/A - Med Ordered
--- NOTE | 2023-03-03 09:47 | PM.PNORT ---
Subjective Subjective Date of Service: 03/03/23 Interval history: POD1 s/p right hand I&D. Patient is resting comfortably in bed. No overnight events. Pain is well managed. No additional complaints Physical Exam Vital Signs: Vital Signs: Last Vital Signs Temp 97.8 F 03/03/23 08:04 Pulse 82 03/03/23 08:04 Resp 18 03/03/23 08:04 BP 148/88 H 03/03/23 08:04 Pulse Ox 96 03/03/23 08:04 O2 Del Method Room Air 03/03/23 08:04 BMI result Body Mass Index 30.5 Const: General: cooperative, healthy appearing and no acute distress Resp: Effort & Inspection: normal respiratory effort and able to speak in complete sentences Cardio: Rate: regular rate Peripheral pulses: Peripheral pulses 2+ throughout GI: Palpation (GI): Soft to palpation Skin: Lesions: no lesions Rashes: no rashes Extrem: Other: Right hand packing pulled at bedside. Sutures intact. Able to slightly flex and extend digits. No tenderness to palpation of the flexor tendons. No evidence of flexor tenosynovitis. Sensation intact. Capillary refill is brisk Procedures Date of Service Date of Service: 03/03/23 Progress Note: A&P Assessment and plan (1) Cellulitis: Status: Acute Assessment and Plan: Elevate throughout the day D/C splint Keep dressings c/d/i Packing pulled at bedside this morning Encourage gentle ROM Daily dressing changes Continue IV abx Pain management as appropriate (2) Infected hand: Status: Acute (3) Dog bite of dorsum of hand: Status: Acute Time Spent With Patient Time: Total time managing care of this patient today ____ minutes. Quality Stroke Does the patient have a stroke diagnosis?: No VTE Prior VTE?: No VTE Risk Level:: Medical - moderate - high VTE Device Contraindication: Treatment Not Indicated VTE Drug Contraindication: N/A - Med Ordered
[2023-03-03] MEDS: Acetaminophen 325 MG TABLET 650 MG PO (11:27)
[2023-03-03] MEDS: oxyCODONE HCl Immed Release 5 MG TABLET PO (11:27)
[2023-03-03 15:09] VITALS: BP 148/88; PULSE 80; RESP 20; TEMP 37.2; O2SAT 97
[2023-03-03] MEDS: Enoxaparin Sodium 40 MG/0.4 ML SYRINGE SUBCUT (15:21)
--- NOTE | 2023-03-03 17:23 | HO.POSTANES ---
Post Anesthesia Evaluation Post Anesthesia Evaluation Vital Signs: Vital Signs Temp Pulse Resp BP Pulse Ox O2 Del Method 03/03/23 15:09 98.9 F 80 20 148/88 H 97 Room Air 03/03/23 08:04 97.8 F 82 18 148/88 H 96 Room Air Anesthesia: General LMA Mental Status: Awake Pain Control: Satisfactory Nausea/Vomiting: None Hydration: Adequate Anesthesia-Related Issues: No Anes. Related Issues
[2023-03-03 20:00] VITALS: BP 149/76; PULSE 86; RESP 18; TEMP 37.5; O2SAT 98
[2023-03-04] MEDS: Ampicillin Sodium/Sulbactam Na 3 GM in 0.9 % Sodium Chloride 100 ML IV ×2 (02:05→07:25)
[2023-03-04 04:00] VITALS: BP 120/72; PULSE 66; RESP 18; TEMP 36.4; O2SAT 96
[2023-03-04] MEDS: Ascorbic Acid 500 MG TABLET PO (07:25)
[2023-03-04] MEDS: Multivitamin TABLET 1 TAB PO (07:25)
[2023-03-04] MEDS: 0.9 % Sodium Chloride Flush 3 ML SYRINGE IVFLUSH (07:26)
[2023-03-04 08:28] VITALS: BP 138/60; PULSE 89; RESP 20; TEMP 36.8
--- NOTE | 2023-03-04 08:29 | PM.PNORT ---
Subjective Subjective Date of Service: 03/04/23 Interval history: POD 2 s/p right hand I&D. Patient is resting comfortably in bed. No overnight events. Pain is well managed. No additional complaints Physical Exam Vital Signs: Vital Signs: Last Vital Signs Temp 97.6 F 03/04/23 04:00 Pulse 66 03/04/23 04:00 Resp 18 03/04/23 04:00 BP 120/72 03/04/23 04:00 Pulse Ox 96 03/04/23 04:00 O2 Del Method Room Air 03/04/23 04:00 BMI result Body Mass Index 30.5 Const: General: cooperative, healthy appearing and no acute distress Resp: Effort & Inspection: normal respiratory effort and able to speak in complete sentences Cardio: Rate: regular rate Peripheral pulses: Peripheral pulses 2+ throughout GI: Palpation (GI): Soft to palpation Skin: Lesions: no lesions Rashes: no rashes Extrem: Other: Right hand packing pulled at bedside. Sutures intact. Able to slightly flex and extend digits. No tenderness to palpation of the flexor tendons. No evidence of flexor tenosynovitis. Sensation intact. Capillary refill is brisk Procedures Date of Service Date of Service: 03/04/23 Progress Note: A&P Assessment and plan (1) Cellulitis: Status: Acute Assessment and Plan: Elevate throughout the day cultures: Viridans streptococcus group Keep dressings c/d/i Encourage gentle ROM Daily dressing changes Continue IV abx --awaiting recommendations from ID or medicine for PO abx--possibly augmentin Pain management as appropriate d/c when medically cleared and f/u with ortho in 1 week (2) Infected hand: Status: Acute (3) Dog bite of dorsum of hand: Status: Acute Time Spent With Patient Time: Total time managing care of this patient today ____ minutes. Quality Stroke Does the patient have a stroke diagnosis?: No VTE Prior VTE?: No VTE Risk Level:: Medical - moderate - high VTE Device Contraindication: Treatment Not Indicated VTE Drug Contraindication: N/A - Med Ordered
--- NOTE | 2023-03-04 08:57 | HO.POSTANES ---
Post Anesthesia Evaluation Post Anesthesia Evaluation Vital Signs: Vital Signs Temp Pulse Resp BP Pulse Ox O2 Del Method 03/04/23 08:28 98.2 F 89 20 138/60 Room Air 03/04/23 04:00 97.6 F 66 18 120/72 96 Room Air Anesthesia: General LMA Mental Status: Awake Pain Control: Satisfactory Nausea/Vomiting: None Hydration: Adequate Anesthesia-Related Issues: No Anes. Related Issues
[2023-03-04] MEDS: Amoxicillin/Potassium Clav 875 MG TABLET PO (10:15)
--- NOTE | 2023-03-04 10:15 | P.DS_ITS ---
DS: Providers Provider Date of Service: 03/04/23 Date of admission: 03/01/23 16:03 Date of discharge: 03/04/23 Primary care physician: Unknown Physician Consults: 03/01/23 16:09 Consult to Orthopedics Routine Consulting Provider: [facility] Reason for consultation: Dog bite to right hand Has provider been notified: Yes DS: Diagnosis Discharge Diagnosis (1) Cellulitis: Status: Acute (2) Infected hand: Status: Acute (3) Dog bite of dorsum of hand: Status: Acute DS: Summary Hospital Course Hospital Course: from admission H+P by hospitalist JUAN DAVID Valentine MD: Pt is a 53-year-old male with a PMH significant only for splenectomy in the early 1999s and not on home meds who presents to the ED from urgent care with?right hand erythema and pain secondary to a dog bite 5 days ago.? Patient states he was home petting his other dog when the little one, a service dog for 11 years, became jealous and bit the pt's right hand multiple times, breaking the skin. Dog is up to date with rabies vaccine. Pt washed the hand but did not bandage it. 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 Last night hand started to turn red and become swollen and painful. This morning pain, swelling, redness increased and hand began draining fluid.? Patient's then convinced him to visit in Urgent Care who then referred him to the ED for treatment with IV antibiotics.? Patient denies fever, chills, nausea, vomiting, abdominal pain.? No chest pain/pressure, palpitations.? Denies shortness of breath. Of note, pt denies any medical diagnoses, but admits he has not seen a PCP in over 20 years. In the ED was afebrile but slightly hypertensive 144/82. Labs were significant for leukocytosis of 17.1, otherwise unremarkable.? Electrolytes normal.? Renal function WNL.? Hepatic function WNL.? X-ray of right and showed diffuse soft tissue swelling but no acute fracture or soft tissue foreign body. EKG demonstrated normal sinus rhythm evidence ST elevations or depressions. Pt was treated with Tdap and Unasyn. Pt will be admitted to the hospital for treatment of right hand cellulitis secondary to dog bite with IV antibiotics and specialist consult. This 53yo M nondiabetic M with hx splenectomy was admitted for cellulitis from an infected dog bite. He was admitted to the medical-surgical floor on IV ampicillin-sulbactam. Orthopedics took him to the OR for I+D of the R dorsal hand wound and the 2nd web space on 03/02/23. Blood cultures were negative and wound cultures grew Streptococcus viridans. He was discharged on 7 days of amoxicillin-clavulanate and was instructed to remain off work until seen by Orthopedics in follow-up in a week. Time Spent with Patient Time attestation: Total time managing care of this patient today __35__ minutes. Discharge coordination time: Greater than 30 minutes Quality: Safe Use of Opioids Does Pt have an Active Cancer Diagnosis on the Problem List?: No Quality: Stroke Does the patient have a stroke diagnosis?: No Physical Exam Vital Signs: Vital Signs: Last Vital Signs Temp 98.2 F 03/04/23 08:28 Pulse 89 03/04/23 08:28 Resp 20 03/04/23 08:28 BP 138/60 03/04/23 08:28 Pulse Ox 96 03/04/23 04:00 O2 Del Method Room Air 03/04/23 08:28 BMI result Body Mass Index 30.5 Gen: in no acute distress HEENT: sclera anicteric, moist mucus membranes Neck: supple Lungs: clear to auscultation bilaterally Heart: regular rate and rhythm, no murmurs Abd: soft, non-tender, non-distended Ext: no edema, R hand with dressing, sutures intact, distally sensation intact and able to flex/extend fingers, normal capillary refill Skin: warm/well-perfused Neuro: alert and oriented x3, no focal findings Psych: appropriate affect DS: Data Data Completed and Pending Completed studies during hospitalization [Text1]: Laboratory Results WBC 11.6 X10*3/uL (4.8-10.8) H 03/02/23 05:59 RBC 5.22 X10*6/uL (4.60-5.80) 03/02/23 05:59 Hgb 15.2 g/dl (14.0-18.0) 03/02/23 05:59 Hct 44.8 % (42.0-52.0) 03/02/23 05:59 MCV 85.8 fL (80.0-98.0) 03/02/23 05:59 MCH 29.1 pg (27.0-33.0) 03/02/23 05:59 MCHC 33.9 g/dl (31.0-36.0) 03/02/23 05:59 RDW 13.3 % (11.0-16.0) 03/02/23 05:59 Plt Count 312 X10*3/uL (160-400) 03/02/23 05:59 MPV 9.7 fL (9.4-12.4) 03/02/23 05:59 Immature Gran % (Auto) 0.5 % (0.0-0.4) H 03/01/23 15:04 Neut % (Auto) 69.4 % (45-73) 03/01/23 15:04 Lymph % (Auto) 20.3 % (20-40) 03/01/23 15:04 [place] % (Auto) 8.3 % (2-11) 03/01/23 15:04 Eos % (Auto) 1.3 % (0-4) 03/01/23 15:04 Baso % (Auto) 0.2 % (0-2) 03/01/23 15:04 Lymph # (Auto) 3.5 X10*3/uL (1.2-4.9) 03/01/23 15:04 [place] # (Auto) 1.4 X10*3/uL (0.1-1.2) H 03/01/23 15:04 Eos # (Auto) 0.2 X10*3/uL (0.0-0.4) 03/01/23 15:04 Baso # (Auto) 0.0 X10*3/uL (0.0-0.2) 03/01/23 15:04 Abs Immat Gran (auto) 0.09 X10*3/uL (0.00-0.03) H 03/01/23 15:04 Absolute Neuts (auto) 11.9 x10*3/uL (2.0-8.3) H 03/01/23 15:04 Absolute Nucleated RBC 0.000 X10*3/uL (0.0-0.012) 03/02/23 05:59 Nucleated RBC % (auto) 0.0 /100WBC (0.0-0.2) 03/02/23 05:59 PT 10.5 SEC (10.0-13.1) 03/01/23 15:04 INR 0.9 (0.9-1.1) 03/01/23 15:04 Sodium 138 mmol/L (135-145) 03/01/23 15:04 Potassium 4.2 mmol/L (3.3-5.1) 03/01/23 15:04 Chloride 106 mmol/L (96-108) 03/01/23 15:04 Carbon Dioxide 23 mmol/L (22-29) 03/01/23 15:04 Anion Gap 13 (12-20) 03/01/23 15:04 BUN 9 mg/dL (9-16) 03/01/23 15:04 Creatinine 0.74 mg/dL (0.5-1.4) 03/01/23 15:04 Estim Creat Clear Calc 139.3 03/01/23 15:04 Estimated GFR > 60 03/01/23 15:04 Random Glucose 86 mg/dL (60-115) 03/01/23 15:04 Lactic Acid 1.1 mmol/L (0.5-2.0) 03/01/23 15:04 Calcium 8.8 mg/dL (8.4-10.2) 03/01/23 15:04 Total Bilirubin 0.9 mg/dL (0.0-1.0) 03/01/23 15:04 Direct Bilirubin 0.2 mg/dL (0.0-0.5) 03/01/23 15:04 AST 24 U/L (5-37) 03/01/23 15:04 ALT 37 U/L (0-40) 03/01/23 15:04 Alkaline Phosphatase 73 U/L (39-117) 03/01/23 15:04 Total Protein 7.5 g/dL (6.5-8.0) 03/01/23 15:04 Albumin 4.3 g/dL (3.5-5.0) 03/01/23 15:04 Impressions Hand X-Ray 03/01/23 14:45 IMPRESSION: No acute fracture or soft tissue foreign body. Diffuse soft tissue swelling. Discharge Plan Discharge Anticipated Discharge Date/Time: 03/04/23 09:56 Patient Disposition: Home, Self-Care Discharge Diagnosis: cellulitis from infected dog bite on dorsal surface of right hand Referrals: Mikki Callahan PA-C [Physician Regional Sales Associate] - 1 Week Physician,Robinson Mari [Primary Care Provider] - 1 Week Discharge Medications: New amoxicillin-pot clavulanate 875-125 mg Tablet 875 mg PO Q12H Qty: 14 0RF oxycodone 5 mg Tablet 5 mg PO Q6H PRN (Reason: Pain, Severe (Pain Scale 7-10)) Qty: 12 0RF Rx Instructions: Partial Fill upon patient request. Continued multivitamin Tablet 1 tab PO DAILY ascorbic acid (vitamin C) [Vitamin C] 500 mg Tablet 500 mg PO DAILY Discharge Orders: Discharge Order (Routine); Ordered 03/04/23 Ordered By: Cristóbal Tam Diet: Advance to usual diet Activity on Discharge: off work Stand Alone Forms: Patient Portal Discharge page, Work/School Release Care Plan Goals: cure of infection Health Concerns: cellulitis from infected dog bite on dorsal surface of right hand Plan of Treatment: amoxicillin-clavulanate 875-125 mg twice daily for 7 days change dressing on R hand daily do gentle [id number] exercises on your own follow up with [facility] in 1 week stay off work until seen by Orthopedics hand therapy after Orthopedics appointment for pain control, use ibuprofen or acetaminophen for mild-moderate pain and oxycodone for severe pain establish primary care provider Assessment: See Discharge Summary. Patient Instructions: How to Stop Smoking (ED)
--- NOTE | 2023-03-04 10:24 | MHC.CM.PN ---
Patient is discharged to home today self care. he will self transport.
--- NOTE | 2023-03-24 09:14 | P.OP_ITS ---
Operative Note Operative Note Date of Service: 03/02/23 Narrative: Date of Service: 03/02/23 Pre-op diagnosis: Right hand infection Post-op diagnosis: same Procedure: 1) Irrigation and debridement right dorsal hand wound 2) Irrigation and debridement right 2nd web space Surgeon: Serjio Andrade MD Anesthesia: GLMA and local Was an Power Saw Mechanic used for this Procedure?: No Estimated blood loss (mL): 50 IV fluids (mL): 500 Pathology: other Condition: stable Disposition: PACU Patient was brought to the operating room and placed supine on the surgical table. He was prepped and draped in standard sterile fashion and a time out was called to indentify proper site, proper procedure and IV antibiotics per weight were administered. I began by making a dorsal incision over the open wound which extended from the dorsum of the hand (over the first metacarpal and distally into the dorsum of the second web space. A Elan type incision was made proximally and distally and the infected wound was explored. The wound was all soft tissue. There was no tracking into the joint capsule and the extensor tendons were unaffected. There was purulence in the second web space and extending over the dorsum of the hand. This was debrided and I irrigated copiously and removed all necrotic tissue. The wound was then packed with nu- gauze and the wound loosely closed with nylon. He was placed in sterile dressing and splinted in a position of safety. He was awakened from anesthesia and brought to the recovery room in stable condition. There were no known complications.
== END 2023-03-04 10:29 | disposition home or self-care (01) | DRG 316 ==
LOC: HO.ED 16:19 → HO.EDOVER 16:29 → HO.S3 16:34
PROVIDERS: Orthopaedic Surgery; Physician Assistant; Admitting Provider Student in an Organized Health Care Education/Training Program; Emergency Provider Emergency Medicine; Visit Provider Family Medicine
PROC: 0J9J0ZZ Drainage of Right Hand Subcutaneous Tissue and Fascia, Open Approach (ICD-10-PCS; principal; 2023-03-02 11:10)
DX: S61.451A Open bite of right hand, initial encounter (principal); F17.210 Nicotine dependence, cigarettes, uncomplicated; L03.113 Cellulitis of right upper limb; W54.0XXA Bitten by dog, initial encounter; Z71.6 Tobacco abuse counseling; Z79.899 Other long term (current) drug therapy
CPT/HCPCS: 36415; 73130; 80048; 80076; 83605; 85025; 85027; 85610; 87040; 87070; 87205; 93005; 99284; J0295; J0690; J1650; J2270; J2405; J2795; J3010

== ENCOUNTER → 2023-03-08 08:17 | Outpatient (BNVA) | payer OTHER, SELFPAY | PROVIDERS: Visit Provider Physician Assistant ==

== ENCOUNTER → 2023-03-14 12:58 | Outpatient (BNVA) | payer OTHER, SELFPAY | PROVIDERS: Visit Provider Physician Assistant ==

== ENCOUNTER → 2023-03-20 13:07 | Outpatient (BNVA) | payer OTHER, SELFPAY | PROVIDERS: Visit Provider Physician Assistant ==

== ENCOUNTER 2025-02-01 09:06 | Emergency (ER) | payer OTHER, SELFPAY ==
--- NOTE | ~2025-02-01 | XR_ITS ---
EXAMINATION: XR KNEE, LEFT CLINICAL INFORMATION: pain COMPARISON: None available. TECHNIQUE: Four views of the left knee. FINDINGS: The tricompartment joint spaces maintain normal. No visible acute fracture, dislocation or subluxation seen. There is anterior superior and anterior inferior patellar enthesophytes. No joint effusion or loose bodies seen. XR/XR knee LT 3V IMPRESSION: Mild anterior superior and anterior inferior patellar enthesophytes. No acute fracture or bony abnormality. Electronically signed by: Dejan Green MD 02/01/2025 10:43 AM EDT
[2025-02-01 09:35] VITALS: BP 159/94; PULSE 78; RESP 18; TEMP 36.6; O2SAT 97; BMI 31.7
--- NOTE | 2025-02-01 09:36 | ED.LOWEXIN ---
HPI - Extremity Injury (Lower) General Chief Complaint: Extremity Injury, Lower Stated Complaint: L Knee Pain Injury Time Seen by Provider: 02/01/25 11:10 Source: patient and RN notes reviewed Mode of arrival: ambulatory Limitations: no limitations History of Present Illness ED Provider: Merari Barrett PA-C HPI Narrative: This is a 54-year-old male, with no known medical problems, who presents emergency department with complaints of left knee pain. Patient reports that 2 months ago he was getting into his work truck and felt a ripping sensation in his left knee. He states that he continues to have left knee pain however states over the last several days, the pain has been constant. He has been taking ibuprofen for his symptoms which has provided him with minimal relief. No other complaints or concerns at this time. MD complaint: knee injury Onset (ago): day(s) Place: work Severity: mild Relieving factors: immobilization Exacerbating factors: weight bearing, movement and palpation Associated symptoms: snap/pop sensation Other symptoms: none Related Data Home Medications ?Medication ?Instructions ?Recorded ?Confirmed ascorbic acid (vitamin C) 500 mg 500 mg PO DAILY 03/01/23 03/09/23 tablet (Vitamin C) multivitamin 1 tab PO DAILY 03/01/23 03/09/23 Previous Rx's ?Medication ?Instructions ?Recorded acetaminophen 500 mg tablet 1,000 mg (2 x 500 mg) PO Q8H PRN 02/01/25 (Tylenol Extra Strength) pain #30 tabs ibuprofen 600 mg tablet 600 mg PO Q6H PRN pain #30 tabs 02/01/25 Allergies Allergy/AdvReac Type Severity Reaction Status Date / Time No Known Allergies Allergy Verified 02/01/25 09:37 Review of Systems Review of Systems: Yes all other systems are reviewed and are negative Constitutional: Constitutional: Reports as per [facility] Past Medical History Surgical History History of splenectomy Social History Social History Household Members: Family Housing: House Do you presently have visiting nurse or other home services: No Patient Tobacco Use Status: Current everyday Tobacco user Tobacco use type: Smokeless Tobacco e-Cigarette/Vaping Use: Currently Using Advance Directives: No Advance Directives Information Provided: Yes service: No Current occupational status: unemployed Physical Exam Vital Signs: Vital Signs: Last Vital Signs Temp 97.9 F 02/01/25 11:58 Pulse 73 02/01/25 11:58 Resp 16 02/01/25 11:58 BP 180/89 H 02/01/25 11:58 Pulse Ox 97 02/01/25 11:58 O2 Del Method Room Air 02/01/25 11:58 BMI result Body Mass Index 31.7 Const: General: cooperative, comfortable and no acute distress Orientation/consciousness: patient oriented x3 Limitations: no limitations HEENT: Head: Yes normal to inspection, Yes normocephalic and Yes atraumatic Ears: hearing grossly normal bilaterally General nose exam: Normal external nose present Face and sinus: Yes normal facial exam Mouth: Normal oral and palatal mucosa present, oropharynx normal and moist mucous membranes Throat: Yes posterior oropharynx normal Eyes: General: appearance normal, both eyes and all related structures Eyelids: Yes eyelids normal Conjunctivae: conjunctivae normal Sclerae: sclerae normal Pupils: Equal, round and reactive pupils present EOM: EOMs intact bilaterally Neck: Neck: Yes normal visual inspection, Yes full ROM and Yes no lymphadenopathy Lymphatic: no lymphadenopathy noted Chest: Chest palpation & inspection: normal inspection of the chest Resp: Effort & Inspection: normal respiratory effort and able to speak in complete sentences Cardio: Rate: regular rate Rhythm: regular rhythm GI: Inspection: Yes normal to inspection Skin: General skin exam: no rashes or lesions noted Trauma: no lacerations or abrasions Wounds: no wounds Neuro: General: patient oriented x3 and moves all extremities Cranial nerves: Yes Equal, round and reactive pupils present Extrem: Other: Left knee with tenderness palpation along the medial and lateral joint line. Positive patellar grind test. Negative anterior-posterior drawer test, no joint laxity with varus and valgus strain. Strong DP pulse. No overlying skin changes, warmth, or obvious edema. No calf tenderness. General: Yes normal to inspection Right upper extremity: normal to inspection Left upper extremity: normal to inspection Right lower extremity: normal to inspection Course Reevaluation(s) Reevaluation #1: X-ray revealing mild anterior superior and anterior inferior patellar asthenia fight, no acute fracture or bony abnormality. Discussed findings with patient. Concern for meniscus like injury. He was also placed in a knee immobilizer and given crutches. He will follow-up with the orthopedic team, advised to call today. Given strict return precautions. Blood pressure elevated at 180/90. He states that he does not have a PCP at this time. Encouraged patient to get PCP as soon as possible and to monitor blood pressure. He has no chest pain, dizziness, blurred vision or headache. Discussed return precautions. Patient stable for discharge. Time: 12:09 Medical Decision Making Medical Decision Making MDM Narrative: This is a 54-year-old male who presents emergency department for evaluation of left knee pain. On arrival, patient mildly hypertensive at 159/94, all other vital signs within normal limits. He is speaking full sentences under no acute distress. Patient has tenderness palpation along the medial and lateral joint line with positive patellar grind test. Will obtain x-rays to rule out any bony abnormalities. Differential diagnoses include internal derangement of knee ligaments, strain, sprain, fracture. Differential Diagnosis Differential Diagnoses: The differential diagnosis associated with the presentation includes See above Radiology Impression Discussion of test interpretation with radiology: I have reviewed the radiologist's reading. Radiologist Impression: EXAMINATION: XR KNEE, LEFT CLINICAL INFORMATION: pain COMPARISON: None available. TECHNIQUE: Four views of the left knee. FINDINGS: The tricompartment joint spaces maintain normal. No visible acute fracture, dislocation or subluxation seen. There is anterior superior and anterior inferior patellar enthesophytes. No joint effusion or loose bodies seen. XR/XR knee LT 3V IMPRESSION: Mild anterior superior and anterior inferior patellar enthesophytes. No acute fracture or bony abnormality. Electronically signed by: Dejan Green MD 02/01/2025 10:43 AM EDT Dictated By: Deajn Green MD Signed By: <Electronically signed by Discharge Plan Discharge Clinical Impression: Knee sprain, Acute knee pain Patient Disposition: Home, Self-Care Instructions: Knee Sprain (ED), Crutch Instructions (ED), R.I.C.E. Treatment (ED) Additional Instructions: You were seen in the emergency department due to left knee pain. There is concerned that you may have injured some of the ligaments in your knee. Please alternate between ibuprofen and or Tylenol as needed for pain and symptoms. Rest, ice, and elevate your left leg. Use crutches. Follow-up with the orthopedic team, call today to make an appointment. If any new or worsening symptoms occur including but not limited to chest pain or shortness of breath, please seek emergent care. Alternating between ibuprofen and Tylenol can achieve good pain relief. Take ibuprofen 600 mg every 6 hours. You may then take Tylenol 1000 mg every 8 hours. After taking ibuprofen, weight 2 hours then take Tylenol. Alternating between the 2 can help. Prescriptions: New ibuprofen 600 mg tablet 600 mg PO Q6H PRN (Reason: pain) Qty: 30 0RF acetaminophen [Tylenol Extra Strength] 500 mg tablet 1,000 mg PO Q8H PRN (Reason: pain) Qty: 30 0RF No Action multivitamin Tablet 1 tab PO DAILY ascorbic acid (vitamin C) [Vitamin C] 500 mg Tablet 500 mg PO DAILY Referrals: [facility] [place] Orthopedic Surgeons [Provider Group] Stand Alone Forms: Work/School Release Interventions: ED Discharge Assessment Last Done: 02/01/25 11:58 Discharge Date/Time: 02/01/25 12:00 Print Language: Russian
[2025-02-01 11:58] VITALS: BP 180/89; PULSE 73; RESP 16; TEMP 36.6; O2SAT 97
== END 2025-02-01 12:00 | disposition home or self-care (01) ==
PROVIDERS: Emergency Provider Emergency Medicine
DX: S83.92XA Sprain of unspecified site of left knee, initial encounter (principal); X58.XXXA Exposure to other specified factors, initial encounter; Y93.9 Activity, unspecified; Y92.9 Unspecified place or not applicable; Y99.0 Civilian activity done for income or pay; Z79.899 Other long term (current) drug therapy
CPT/HCPCS: 73562; 99282; 99283

== ENCOUNTER → 2025-02-01 09:39 | Outpatient (BNV) | payer OTHER, SELFPAY | PROVIDERS: Visit Provider Radiology Diagnostic Radiology | DX: M25.562 Pain in left knee (principal) | CPT/HCPCS: 73562 ==

== ENCOUNTER 2025-04-08 09:07 | Outpatient (REF) | payer OTHER, SELFPAY | END 2025-04-08 09:08 | disposition home or self-care (01) | LOC: HO.HOSX 09:07 | PROVIDERS: Visit Provider Physician Assistant | DX: Z13.89 Encounter for screening for other disorder (principal) ==